=== PATIENT | female | born 1960 | race Hispanic/Latino ===

== ENCOUNTER 2019-07-18 22:46 | Inpatient (IN) | payer OTHER ==
--- NOTE | 2019-07-18 23:33 | RAD ---
Exam: XR Hip Lt 2-3 View HISTORY: Left hip pain after a fall. COMPARISON: None FINDINGS: There is a subcapital left femoral neck fracture with varus angulation of fracture fragments. Distal fracture fragment is also mildly displaced superiorly. No definite additional fracture is seen. Multiple phleboliths overlie the pelvis. IMPRESSION: Left subcapital femoral neck fracture with varus angulation and mild displacement of fracture fragmen ts.
[2019-07-18] MEDS ORDERED: Ondansetron PF 4 MG/2 ML Vial ONE (23:53)
[2019-07-18] MEDS ORDERED: Morphine 4 MG/ML VIAL ONE (23:53)
[2019-07-19 00:22] LABS: #Basophils 0.1 thou/uL (0.0-0.2); #Monocytes 0.3 thou/uL (0.11-0.59); #Neutrophils 7.7 thou/uL (1.40-6.50); %Basophils 0.9 % (0.0-1.0); %Eosinophils 0.1 % (0.0-10.0); %Lymphocytes 20.1 % (21.0-51.0); %Neutrophils 75.9 % (42.0-75.0); Hemoglobin 11.5 g/dL (12.0-16.0); Mean Corpuscular HGB CONC 33.8 g/dL (32.0-36.0); Mean Corpuscular Hemoglobin 33.7 pg (27.0-31.0); Mean Corpuscular Volume 99.6 fL (78.0-98.0); Mean Platelet Volume 6.5 fL (7.4-10.4); Platelet Count 249 thou/uL (130-400); RBC Distribution Width 12.7 % (11.5-14.5); White Blood Cell (WBC) Count 10.1 thou/uL (4.8-10.8)
[2019-07-19 00:31] LABS: INR-International Normal Ratio 1.2; PTT 32.8 SEC (22.9-36.1); Prothrombin Time 14.7 SEC (12.0-14.7)
[2019-07-19 00:45] LABS: ALT (SGPT) 18 U/L (8-55); AST (SGOT) 40 U/L (5-34); Albumin 3.5 g/dL (3.5-5.0); Alkaline Phosphatase 122 U/L (40-110); Anion Gap 13 mmol/L (10-20); BUN (Urea Nitrogen) 4 mg/dL (9.8-20.1); Bilirubin, Total 0.3 mg/dL (0.2-1.2); Calc. Creatinine Clearance 0 mL/min (70-130); Calcium 8.2 mg/dL (7.8-10.44); Carbon Dioxide 22 mmol/L (22-29); Chloride 91 mmol/L (98-107); Estimated GFR-MDRD Greater than 90; Globulin 2.9 g/dL (2.4-3.5); Glucose 145 mg/dL (70-105); Potassium 4.1 mmol/L (3.5-5.1); Protein, Total 6.4 g/dL (6.0-8.3); Sodium 122 mmol/L (136-145)
[2019-07-19] MEDS ORDERED: Dextrose 5% in Water 1,000 ML IV PRN (01:16)
[2019-07-19] MEDS ORDERED: Ondansetron PF 4 MG/2 ML Vial IVP PRN (01:16)
[2019-07-19] MEDS ORDERED: hydrALAZINE 20 MG/ML VIAL SLOW IVP PRN (01:16)
[2019-07-19] MEDS ORDERED: Dextrose 50% Abboject 50 ML SYRINGE SLOW IVP PRN (01:16)
[2019-07-19] MEDS ORDERED: traMADol HCl 50 MG TAB PO PRN ×2 (01:22→16:47)
[2019-07-19] MEDS ORDERED: Acetaminophen 325 MG TAB PO PRN (01:22)
[2019-07-19] MEDS ORDERED: Sodium Chloride 0.9% 1,000 ML IV SCH (01:30)
[2019-07-19] MEDS ORDERED: Ketorolac Tromethamine 30 MG/ML VIAL IVP SCH (02:00)
--- NOTE | 2019-07-19 02:24 | HP ---
HISTORY OF PRESENT ILLNESS: Ms. Kelly is a 59-year-old female who presents to the ED after a mechanical fall at home. The patient reports she was walking in the garage, tripped from some object on the floor, fell on her left hip. She did not report loss of consciousness or hit her head at the time. After the fall, the patient was complaining of pain from the left hip and unable to bear weight. Upon arrival in the ED the patient alert and awake. GCS 15. Vital signs stable. Complaint of left hip pain. No other pain is associated. REVIEW OF SYSTEMS: Noncontributory except per HPI. PAST MEDICAL HISTORY: COPD, alcoholic pancreatitis. PAST SURGICAL HISTORY: Cataract surgery. SOCIAL HISTORY: The patient drinks every day 6 to 7 pack a day, smoke every day half a pack a day. The patient lives at home. Denies drug use. CURRENT MEDICATION: Include ibuprofen and albuterol inhaler two times a day. PHYSICAL EXAMINATION: GENERAL: The patient lying down in bed comfortable with no acute respiratory distress. The patient is alert and awake. GCS 15. SKIN: [place]. Membranes is moist. HEENT: Atraumatic. No bruising. Pupils equal bilaterally. Reactive to light. NECK: Trachea midline. Nontender to palpation. CHEST: Atraumatic. No crepitus. No bruising. No tender to palpation. LUNGS: Clear bilaterally. HEART: Regular rate and rhythm. ABDOMEN: Soft, nondistended. Bowel sounds active. EXTREMITIES: Neurovascularly intact x4. Left hip pain and limited range of motion due to pain. NEUROLOGY: No focal neurology deficits. Initial workup show left hip fracture. ASSESSMENT: 1. Status post mechanical ground level fall. 2. Left hip fracture. 3. History of chronic obstructive pulmonary disease. 4. Alcohol abuse. PLAN: The patient will be admitted to [place] [id number] for pain control. The patient will be n.p.o. at midnight. Initiate non-pharmacology DVT prophylaxis. Initiate gastritis prophylaxis. Dr. Rankin will take the patient to the OR tomorrow for left hip fracture fixation. Postop the patient will need to work with PT, OT. Anticipate placement in rehabilitation facility. Job ID: [id number]
[2019-07-19] MEDS: Sodium Chloride 0.9% 1,000 ML IV SCH ×3 (03:30→17:16)
--- NOTE | 2019-07-19 03:35 | CON ---
DATE OF CONSULTATION: 07/19/2019 CHIEF COMPLAINT: Left hip pain. HISTORY OF PRESENT ILLNESS: Ms. Kelly is a 59-year-old female, status post fall, tripping over her feet while at home. She is mainly complaining of left hip pain with motion. Pain is 4/10. Denies numbness or tingling. PAST MEDICAL HISTORY: Includes COPD, alcoholic pancreatitis, history of a collapsed lung x2. No history of congestive heart failure per report. Mixed depressive bipolar. PAST SURGICAL HISTORY: Includes; 1. Lung surgery for collapsed lung. 2. Cataract procedures. ALLERGIES: NO KNOWN DRUG ALLERGIES. MEDICATIONS: Ibuprofen and multivitamins. SOCIAL HISTORY: Drinks 6 packs per day, 7 per day, smoked for 30 years. The patient lives at home with 2 elder people. She is currently not working. She states that she walks around the house, around the neighborhood actively. PHYSICAL EXAMINATION: VITAL SIGNS: Blood pressure 120/57, heart rate 63, respiratory rate 20, temperature 97.8, sats 100% on room air. GENERAL: Alert and oriented female, in no acute distress, resting comfortably in bed. EXTREMITIES: Left lower extremity is short and externally rotated. Brisk cap refill. 2+ palpable pulse. Pain with internal and external rotation. No effusion in the knee. Patient has motor intact distally. IMAGING DATA: Radiographs of left hip show a subcapital femoral neck fracture. LABORATORY DATA: H and H 11 and 35. IMPRESSION: 1. Left subcapital femoral neck fracture. 2. Smoker. 3. History of alcoholism. 4. Chronic obstructive pulmonary disease. ASSESSMENT AND PLAN: The patient admitted per Trauma and discussed with the patient that she would require total hip arthroplasty for definitive care of her left hip. I discussed the reasons why given she is 59 and active, discussed she is at increased risk, she has had recurrent falls periprosthetic fracture dislocation. Discussed risk of her limb, discussed risk of DVT, damage to vital structures, nerves, arteries, tendons, need for further surgery, short and external rotation, loss of life or limb. Discussed mortality associated with the fracture. The patient and family understand the risks and benefits of procedure, using preoperative antibiotics, will be taken to the OR tomorrow. Job ID: [id number]
[2019-07-19] MEDS: Ketorolac Tromethamine 30 MG/ML VIAL IVP SCH ×2 (05:23→12:33)
[2019-07-19 05:47] VITALS: BMI 16.6
[2019-07-19] MEDS ORDERED: FLU VACC QS2019-20(6MOS UP)/PF 60 MCG/0.5 ML SYRINGE IM ONE (09:00)
--- NOTE | 2019-07-19 09:02 | RAD ---
LEFT TIBIA AND FIBULA 2 VIEWS: Date: 07/19/19 HISTORY: Tibia/fibula pain after fall. FINDINGS: The bones appear demineralized. There are no signs of fracture or dislocation. IMPRESSION: Negative left tibia and fibula. POS: OFF
--- NOTE | 2019-07-19 09:53 | RAD ---
AP PELVIS: Date: 07/19/19 HISTORY: Fall with hip pain. FINDINGS: Bones are demineralized. There is a left femoral neck fracture present. Associated coxa vara deformit y. IMPRESSION: Left femoral neck fracture. POS: OFF
[2019-07-19] MEDS: Famotidine/PF 20 mg/2ml Vial SLOW IVP SCH ×2 (09:55→21:36)
[2019-07-19] MEDS: Thiamine 100 MG TAB PO SCH (09:57)
[2019-07-19] MEDS: Folic Acid 1 MG TAB PO SCH (09:57)
[2019-07-19] MEDS: Gabapentin 100 MG CAP PO SCH ×3 (09:57→21:38)
[2019-07-19] MEDS: Polyethylene Glycol 3350 17 GM Packet PO SCH (09:57)
[2019-07-19] MEDS: Senokot S 8.6-50 MG TAB PO SCH ×2 (09:57→21:38)
[2019-07-19] MEDS: Oxazepam 10 MG CAP PO SCH ×2 (09:57→21:39)
--- NOTE | 2019-07-19 10:06 | RAD ---
LEFT FEMUR 2 VIEWS: Date: 07/19/19 HISTORY: Fall with pain. FINDINGS: There is a left femoral neck fracture noted. There is a coxa vara type deformity present. Bones appea r demineralized. IMPRESSION: Left femoral neck fracture. POS: OFF
--- NOTE | 2019-07-19 11:03 | HP ---
CHIEF COMPLAINT: Left hip pain after fall. HISTORY OF PRESENT ILLNESS: The patient is a 59-year-old female, who was at a [employer], evidently fell off a step, landed on her left hip and complained of severe pain. No loss of consciousness. No other injury. PAST MEDICAL HISTORY: Significant for COPD. She has history of alcoholism, pancreatitis. She has had 2 pneumothoraxes. PAST SURGICAL HISTORY: She has had chest tube placement. MEDICATIONS: She takes; 1. Albuterol inhaler. 2. Ibuprofen. ALLERGIES: SHE HAS NO KNOWN DRUG ALLERGIES. PHYSICAL EXAMINATION: VITAL SIGNS: Temperature 98.2, pulse 77, and blood pressure is 102/51. GENERAL: She is awake, alert, in no apparent distress. HEENT: Unremarkable. LUNGS: Clear. HEART: Regular rate and rhythm. ABDOMEN: Soft, nondistended, and nontender. EXTREMITIES: She has tenderness in the left hip. DIAGNOSTIC DATA: Hip x-ray shows a left subcapsular femoral neck fracture with mild displacement. Pelvis, unremarkable. Tibia-fibula, unremarkable. ASSESSMENT: Left hip fracture. PLAN: Left hip replacement per Orthopedics. Job ID: [id number]
[2019-07-19] MEDS ORDERED: Ketorolac Tromethamine 30 MG/ML VIAL ONE (11:20)
[2019-07-19] MEDS ORDERED: Vancomycin HCl 500 MG VIAL ONE (11:50)
[2019-07-19] MEDS ORDERED: Ondansetron HCl/PF 4 MG/2 ML Vial IVP PRN (11:58)
[2019-07-19] MEDS ORDERED: Fentanyl 100 MCG/2 ML VIAL ONE ×4 (12:04→15:21)
[2019-07-19] MEDS ORDERED: Rocuronium Bromide 10 MG/ML (10ML VIAL) ONE (14:56)
[2019-07-19] MEDS ORDERED: PROPOFOL 200 MG/20 ML VIAL ONE (14:56)
[2019-07-19] MEDS ORDERED: Ondansetron PF 4 MG/2 ML Vial ONE (14:56)
[2019-07-19] MEDS ORDERED: Dexamethasone 20 MG/5 ML VIAL ONE (14:56)
[2019-07-19] MEDS ORDERED: Glycopyrrolate 0.2 MG/ML 5 ML SYRINGE ONE (14:56)
[2019-07-19] MEDS ORDERED: Lidocaine 1% PF 5 ML VIAL ONE (14:56)
--- NOTE | 2019-07-19 15:16 | RAD ---
LEFT HIP TWO VIEWS: HISTORY: Postop. FINDINGS: A total hip prosthesis has been placed, which is in good position. No signs of fracture. IMPRESSION: Placement of total left hip prosthesis. POS: OFF
[2019-07-19 16:18] LABS: #Lymphocytes 0.5 thou/uL (1.20-3.40); #Monocytes 0.1 thou/uL (0.11-0.59); #Neutrophils 12.9 thou/uL (1.40-6.50); %Basophils 0.2 % (0.0-1.0); %Lymphocytes 3.9 % (21.0-51.0); %Monocytes 0.7 % (0.0-10.0); %Neutrophils 95.2 % (42.0-75.0); Hemoglobin 9.7 g/dL (12.0-16.0); Mean Corpuscular Hemoglobin 34.3 pg (27.0-31.0); Mean Platelet Volume 6.4 fL (7.4-10.4); Platelet Count 203 thou/uL (130-400); RBC Distribution Width 12.7 % (11.5-14.5); Red Blood Cell (RBC) Count 2.82 mill/uL (4.20-5.40); White Blood Cell (WBC) Count 13.5 thou/uL (4.8-10.8)
[2019-07-19 16:39] LABS: Anion Gap 12 mmol/L (10-20); BUN (Urea Nitrogen) 4 mg/dL (9.8-20.1); Carbon Dioxide 24 mmol/L (22-29); Chloride 96 mmol/L (98-107); Potassium 4.2 mmol/L (3.5-5.1); Sodium 128 mmol/L (136-145)
[2019-07-19 16:40] LABS: Calc. Creatinine Clearance 68 mL/min (70-130); Calcium 7.9 mg/dL (7.8-10.44); Estimated GFR-MDRD Greater than 90; Glucose 177 mg/dL (70-105); Magnesium 1.8 mg/dL (1.6-2.6); Phosphorus 3.6 mg/dL (2.3-4.7)
[2019-07-19] MEDS: Acetaminophen 500 MG TAB PO SCH ×2 (17:14→23:55)
[2019-07-19] MEDS: ceFAZolin 1 GM/D5W 1 GM in Premix Bag 1 BAG IVPB SCH (21:00)
[2019-07-19] MEDS: Ibuprofen 600 MG TAB PO SCH (21:38)
[2019-07-19] MEDS ORDERED: Vancomycin HCl 1 GM in Premix Bag 1 BAG IVPB SCH (23:59)
[2019-07-20] MEDS ORDERED: Sodium Chloride 0.9% 500 ML IV SCH (01:30)
[2019-07-20] MEDS ORDERED: Hydrocortisone Sod Succ/PF 100 mg/2 ml Vial IVP SCH (01:45)
[2019-07-20] MEDS: ceFAZolin 1 GM/D5W 1 GM in Premix Bag 1 BAG IVPB SCH ×2 (04:00→12:49)
[2019-07-20 06:13] LABS: Hemoglobin 7.2 g/dL (12.0-16.0); Mean Corpuscular HGB CONC 33.5 g/dL (32.0-36.0); Mean Corpuscular Hemoglobin 34.2 pg (27.0-31.0); Platelet Count 144 thou/uL (130-400); RBC Distribution Width 12.5 % (11.5-14.5); Red Blood Cell (RBC) Count 2.11 mill/uL (4.20-5.40); White Blood Cell (WBC) Count 5.9 thou/uL (4.8-10.8)
[2019-07-20 06:32] LABS: Anion Gap 11 mmol/L (10-20); BUN (Urea Nitrogen) 4 mg/dL (9.8-20.1); Calc. Creatinine Clearance 67 mL/min (70-130); Calcium 7.3 mg/dL (7.8-10.44); Carbon Dioxide 21 mmol/L (22-29); Chloride 102 mmol/L (98-107); Estimated GFR-MDRD Greater than 90; Glucose 157 mg/dL (70-105); Magnesium 1.7 mg/dL (1.6-2.6); Phosphorus 2.9 mg/dL (2.3-4.7); Potassium 4.2 mmol/L (3.5-5.1); Sodium 130 mmol/L (136-145)
[2019-07-20] MEDS: Hydrocortisone Sod Succ/PF 100 mg/2 ml Vial IVP SCH ×3 (06:38→20:59)
[2019-07-20] MEDS: Acetaminophen 500 MG TAB PO SCH ×3 (06:38→17:39)
[2019-07-20] MEDS: Ibuprofen 600 MG TAB PO SCH ×3 (06:39→21:00)
[2019-07-20] MEDS: Gabapentin 100 MG CAP PO SCH ×3 (08:29→20:40)
[2019-07-20] MEDS: Famotidine/PF 20 mg/2ml Vial SLOW IVP SCH ×2 (08:29→20:40)
[2019-07-20] MEDS: Oxazepam 10 MG CAP PO SCH ×2 (08:29→20:40)
[2019-07-20] MEDS: Polyethylene Glycol 3350 17 GM Packet PO SCH (08:30)
[2019-07-20] MEDS: Thiamine 100 MG TAB PO SCH (08:30)
[2019-07-20] MEDS: Folic Acid 1 MG TAB PO SCH (08:30)
[2019-07-20] MEDS: Senokot S 8.6-50 MG TAB PO SCH ×2 (08:30→20:40)
--- NOTE | 2019-07-20 10:55 | CON ---
DATE OF CONSULTATION: HISTORY OF PRESENT ILLNESS: Ms. Kelly is a 59-year-old female, status post left total hip arthroplasty after a fall with femoral neck fracture. The patient is resting comfortably in bed without any acute complaints. PHYSICAL EXAMINATION: VITAL SIGNS: Temperature 98.2, pulse 80, respiratory rate 20, and blood pressure 130/68. GENERAL: Alert and oriented female, in no acute distress. EXTREMITIES: Left lower extremity dressing clean, dry, and intact. Neurovascularly intact. Length and rotation are stable. LABORATORY DATA: H and H of 7 and 21. IMPRESSION: 1. Left femoral neck fracture. 2. Anemia. 3. History of alcoholism. 4. Chronic obstructive pulmonary disease/smoker. ASSESSMENT AND PLAN: The patient will be ambulated. She is currently receiving blood transfusion. Will potentially need [facility] transfer to follow in-house. Start deep venous thrombosis prophylaxis when her H and H stabilizes. Job ID: [id number]
[2019-07-20] MEDS: traMADol HCl 50 MG TAB PO PRN ×2 (11:25→17:39)
--- NOTE | 2019-07-20 12:26 | OP ---
DATE OF PROCEDURE: 07/19/2019 PREOPERATIVE DIAGNOSIS: Left femoral neck fracture. POSTOPERATIVE DIAGNOSIS: Left femoral neck fracture. PROCEDURE PERFORMED: Left total hip arthroplasty. SCHOOL PHOTOGRAPH EDITOR: Marcie Dawson PA-C. ANESTHESIA: The patient received a general endotracheal intubation. ESTIMATED BLOOD LOSS: 150 mL. TOURNIQUET TIME: None. IMPLANTS: [place] Trident PSL CONDON shell 46 mm and Trident X3 0-degree poly at 36 mm, Accolade II 130-degree size 5, and a Biolox ceramic Delta -5 femoral head. ANTIBIOTICS: 2 g of vancomycin 2g of ancef COMPLICATIONS: None. HISTORY OF PRESENT ILLNESS: Ms. Kelly is a 59-year-old female with history of alcoholism, smoking, and COPD, The patient fell from ground fall suffering a left femoral neck fracture. I discussed with the patient risks and benefits of left total hip arthroplasty including pain, scar, bleeding, infection, fracture, dislocatoin, need for further surgery, failure of implants needing surgical intervention, damage to vital structures, decreased range or strength, loss of life or limb, blood clot, shortening external rotation of the limb. The patient understood risks and benefits of procedure and elected to proceed. DESCRIPTION OF PROCEDURE: Time-out was performed, designating the patient's left lower extremity as the operative site based on site, consents, and marking. After time-out, the patient's left lower extremity was placed in the lateral position bony prominences were well padded. After the time-out had been performed, the patient's lateral incision was made down through skin and IT band. The gluteus medius and minimus were taken down. The capsule was T'd up to the acetabulum. We were able the bring out the head, cut our neck, remainder of neck and remove it. We then placed a corkscrew and we were able to lever out the ball. We removed the acetabular labrum to expose the hip. We measured the size of the head about a 44 we reamed up to a 46. I felt like if I went larger and very minimal bone stock available. Therefore, I stayed with a 46, reamed and placed 46-mm PSL cup, placed the X3 poly impacting into place to make sure it was nice and stable no movement, overall I was happy. We then moved back to the patient's femur. We used a [employer] cutter followed up to a broach_. The patient's calcar was long, therefore we had on 2 separate occasions broached down in calcar plane to help with our lengths as well as just ensure that we were able to reduce the hip. We finally ended up with the size 5. The 36 [address] head reduced in place. We had overall good stability I like the flexion-extension Shuck as well as the patient's length. We removed the stem, placed a final implant with a -5 ceramic head, reduced into place, washed the joint. We took the capsule, which we closed with #2 Vicryl. We closed the gluteus back to both the fascial plane as well as what was left what was cut off the bone. We then closed the gluteus medius and minimus and portions of the vastus as well as near its insertion and two separate sutures through bone. I washed, closed the IT band with number 2 vicryl and statafix. We closed skin with 0, 2-0 stratafix and glue. The patient will be admitted to Trauma. She will be weightbearing as tolerated. The patient is followed in-house. The patient will need likely long-term placement . Job ID: [id number] [facility]PITALLiss[facility]
[2019-07-20] MEDS: Cyclobenzaprine 10 MG TAB PO PRN (12:49)
[2019-07-20] MEDS ORDERED: Magnesium Sulfate 3 GM in Sodium Chloride 0.9% 250 ML 250 ML IVPB SCH (13:00)
--- NOTE | 2019-07-20 13:05 | PRG ---
DATE OF SERVICE: 07/20/2019 SUBJECTIVE: The patient is hospital day 2, postop day 1, status post ground level fall when she sustained a left femoral neck fracture. She has undergone operative intervention for this and she did well. This morning, it was noted that she had acute blood loss anemia and she is currently being transfused 1 unit of packed red blood cells. She is tolerating a diet. Her pain is controlled. OBJECTIVE: VITAL SIGNS: Temperature 98.1, heart rate 60, respirations 18, oxygen saturation 98% on room air, and blood pressure is 131/77. GENERAL: The patient is resting comfortably in bed. She has just completed breakfast. She has no complaints. She is awake and appropriate. HEENT: Unremarkable. LUNGS: Clear to auscultation with good inspiratory and expiratory effort. HEART: Regular rate and rhythm. ABDOMEN: Soft, flat, and nontender with active bowel sounds. EXTREMITIES: Neurovascularly intact x4. Postop dressing is clean, dry, and intact. LABORATORY FINDINGS: White blood cell count 5.9, hemoglobin 7.2, hematocrit 21.5, and platelets 144. Sodium 130, potassium 4.2, chloride 102, CO2 of 21, BUN 4, creatinine 0.66, glucose 157, magnesium 1.7, and phosphorus 2.9. Cortisols less than 1. No radiographs reviewed this morning. ASSESSMENT: 1. Status post ground level fall. 2. Status post open reduction and internal fixation of left femoral neck fracture, postop day 1. 3. Acute blood loss anemia, being transfused 1 unit of packed red blood cells. 4. Hypomagnesemia. The patient will have electrolyte replaced. 5. History of alcoholism. 6. History of chronic obstructive pulmonary disease. 7. Hyponatremia, improved. PLAN: Plan will be to encourage physical and occupational therapy. Once blood transfusion is completed, we will discuss placement, which will likely be rehab. We will recheck her labs again in the morning or sooner as needed. Job ID: [id number] [facility]
--- NOTE | 2019-07-20 21:58 | PRG ---
DATE OF SERVICE: SUBJECTIVE: Ms. Kelly is a 59-year-old female, status post ground level fall. She sustained left hip fracture. She underwent ORIF of left hip fracture, postop day #1 today. She has a history of COPD, alcoholism, and acute blood loss anemia. She is being transfused with 1 unit of packed red blood cells today. Currently, patient reports pain is well controlled. She is tolerating with her regular diet. She developed no fever or shortness of breath. She voiced no concern. OBJECTIVE: GENERAL: Currently, patient is lying down in bed comfortable with no acute respiratory distress. VITAL SIGNS: Stable. LUNGS: Clear bilaterally. HEART: Regular rate and rhythm. Postop dressing of the left hip is clean, dry, and intact. EXTREMITIES: Neurovascularly intact x4. PLAN: Will be to continue supportive care. Continue pain control. Continue working with PT/OT tomorrow. Anticipate placement in a rehabilitation facility. Job ID: [id number]
[2019-07-21] MEDS: Acetaminophen 500 MG TAB PO SCH ×4 (00:23→17:45)
[2019-07-21] MEDS: Hydrocortisone Sod Succ/PF 100 mg/2 ml Vial IVP SCH ×3 (05:32→21:55)
[2019-07-21] MEDS: Ibuprofen 600 MG TAB PO SCH ×3 (05:33→22:02)
[2019-07-21 06:11] LABS: #Lymphocytes 2.7 thou/uL (1.20-3.40); #Monocytes 0.5 thou/uL (0.11-0.59); #Neutrophils 6.9 thou/uL (1.40-6.50); %Basophils 0.1 % (0.0-1.0); %Eosinophils 0.1 % (0.0-10.0); %Lymphocytes 26.3 % (21.0-51.0); %Monocytes 4.8 % (0.0-10.0); %Neutrophils 68.6 % (42.0-75.0); Mean Corpuscular HGB CONC 33.8 g/dL (32.0-36.0); Mean Corpuscular Hemoglobin 33.6 pg (27.0-31.0); Mean Corpuscular Volume 99.2 fL (78.0-98.0); Mean Platelet Volume 7.4 fL (7.4-10.4); Platelet Count 132 thou/uL (130-400); RBC Distribution Width 13.9 % (11.5-14.5); Red Blood Cell (RBC) Count 2.67 mill/uL (4.20-5.40); White Blood Cell (WBC) Count 10.1 thou/uL (4.8-10.8)
[2019-07-21 06:32] LABS: Anion Gap 9 mmol/L (10-20); BUN (Urea Nitrogen) 5 mg/dL (9.8-20.1); Calc. Creatinine Clearance 74 mL/min (70-130); Calcium 7.7 mg/dL (7.8-10.44); Carbon Dioxide 25 mmol/L (22-29); Chloride 100 mmol/L (98-107); Estimated GFR-MDRD Greater than 90; Glucose 138 mg/dL (70-105); Magnesium 2.3 mg/dL (1.6-2.6); Phosphorus 2.7 mg/dL (2.3-4.7); Potassium 4.6 mmol/L (3.5-5.1); Sodium 129 mmol/L (136-145)
[2019-07-21] MEDS: Aspirin 81 mg Enteric Coated Tablet PO SCH ×2 (09:40→21:36)
[2019-07-21] MEDS: Sodium Chloride 1 GM TAB PO SCH ×2 (09:40→21:38)
[2019-07-21] MEDS: Folic Acid 1 MG TAB PO SCH (09:40)
[2019-07-21] MEDS: Thiamine 100 MG TAB PO SCH (09:40)
[2019-07-21] MEDS: Gabapentin 100 MG CAP PO SCH ×3 (09:40→21:37)
[2019-07-21] MEDS: Famotidine/PF 20 mg/2ml Vial SLOW IVP SCH ×2 (09:40→21:38)
[2019-07-21] MEDS: Oxazepam 10 MG CAP PO SCH ×2 (09:42→21:37)
[2019-07-21] MEDS: Polyethylene Glycol 3350 17 GM Packet PO SCH (09:42)
[2019-07-21] MEDS: Senokot S 8.6-50 MG TAB PO SCH ×2 (09:42→21:37)
--- NOTE | 2019-07-21 11:41 | PRG ---
DATE OF SERVICE: 07/21/2019 SUBJECTIVE: Ms. Kelly is a 59-year-old female, status post left total hip arthroplasty. The patient is resting comfortably in bed. She states she ambulated 25 feet yesterday and has had a big bowel movement. Pain and function are improving. OBJECTIVE: VITAL SIGNS: Temperature 98.1, pulse 72, respiratory rate 18, MUSCULOSKELETAL: Neurovascularly intact. wound clean, dry, and intact wound. LABORATORY DATA: H and H of 9 and 26.5. ASSESSMENT AND PLAN: The patient will be weightbearing as tolerated. Likely potentially need skilled placement will follow along with trauma. Job ID: [id number] [facility]
[2019-07-21] MEDS: Cyclobenzaprine 10 MG TAB PO PRN (14:17)
--- NOTE | 2019-07-21 14:55 | PRG ---
DATE OF SERVICE: 07/21/2019 SUBJECTIVE: The patient remains on the surgical floor. She is hospital day #3, postop day #2, status post ground level fall when she sustained a left femoral neck fracture. She has been working with physical and occupational therapy. She is tolerating a diet. Her pain is controlled. Yesterday, she did require 1 unit of packed red blood cells that she states did make her feel better. The patient also was noted to have adrenal insufficiency and was started on hydrocortisone. OBJECTIVE: VITAL SIGNS: Temperature is 97.9, heart rate 67, blood pressure 145/73, respirations 14, and oxygen saturation is 97% on room air. HEENT: Unremarkable. LUNGS: Clear to auscultation bilaterally. HEART: Regular rate and rhythm. ABDOMEN: Soft, flat, and nontender with active bowel sounds. EXTREMITIES: Neurovascularly intact x4. Postop dressing is clean, dry, and intact. LABORATORY FINDINGS: White blood cell count 10.1, hemoglobin 9.0, hematocrit 26.5, platelets 132. Sodium 129, potassium 4.6, chloride 100, CO2 of 25, BUN 5, creatinine 0.60, glucose 138, magnesium 2.3, and phosphorus 2.7. IMAGING STUDIES: There are no radiographs to review this morning. ASSESSMENT: 1. Status post ground level fall. 2. Status post open reduction and internal fixation of left femoral neck fracture, postop day #2. 3. Acute blood loss anemia, improved, stable. 4. Hypomagnesemia, resolved. 5. Adrenal insufficiency, improved. We will wean hydrocortisone. 6. Hyponatremia, stable. We will add p.o. sodium today. 7. History of alcoholism and chronic obstructive pulmonary disease. PLAN: Plan will be to continue physical and occupational therapy and other care as addressed above and we will await placement decision. Job ID: [id number]
[2019-07-21] MEDS: Nicotine 14 MG PATCH TD SCH (21:39)
[2019-07-21] MEDS: Acetaminophen 325 MG TAB PO SCH (23:34)
[2019-07-21] MEDS: traMADol HCl 50 MG TAB PO PRN (23:35)
[2019-07-22] MEDS: Ibuprofen 600 MG TAB PO SCH ×3 (05:31→21:16)
[2019-07-22] MEDS: Acetaminophen 325 MG TAB PO SCH ×3 (05:31→18:08)
[2019-07-22] MEDS: Hydrocortisone Sod Succ/PF 100 mg/2 ml Vial IVP SCH (05:32)
--- NOTE | 2019-07-22 05:33 | PRG ---
DATE OF SERVICE: 07/21/2019 SUBJECTIVE: Ms. Kelly is a 59-year-old female, status post ground level fall. She sustained left hip fracture. She underwent ORIF of left hip fracture, postop day #2. She also has a history of COPD, alcoholism, and history of smoking. Patient reports she has been doing good. Pain is well controlled. She is able to work with PT/OT. She tolerated her regular diet. She voiced no concern. OBJECTIVE: GENERAL: Currently, patient is lying in bed comfortable with no acute respiratory distress. VITAL SIGNS: Stable. EXTREMITIES: Neurovascularly intact x4. Postop dressing clean, dry, intact. ASSESSMENT AND PLAN: We will continue supportive care. Continue pain control. Continue working with PT/OT. Placement is pending. Job ID: [id number]
[2019-07-22] MEDS: Aspirin 81 mg Enteric Coated Tablet PO SCH ×2 (08:56→21:16)
[2019-07-22] MEDS: Senokot S 8.6-50 MG TAB PO SCH ×2 (08:56→21:16)
[2019-07-22] MEDS: Oxazepam 10 MG CAP PO SCH ×2 (08:56→21:16)
[2019-07-22] MEDS: Thiamine 100 MG TAB PO SCH (08:56)
[2019-07-22] MEDS: Famotidine/PF 20 mg/2ml Vial SLOW IVP SCH (08:56)
[2019-07-22] MEDS: Folic Acid 1 MG TAB PO SCH (08:56)
[2019-07-22] MEDS: Gabapentin 100 MG CAP PO SCH ×3 (08:56→21:16)
[2019-07-22] MEDS: Polyethylene Glycol 3350 17 GM Packet PO SCH (08:57)
--- NOTE | 2019-07-22 11:32 | PRG ---
DATE OF SERVICE: SUBJECTIVE: The patient remains on the surgical floor. She is hospital day 4, postop day 3 status post ground-level fall, in which she sustained a left femoral neck fracture. She has undergone operative repair. She has been working with Physical and Occupational Therapy. She is tolerating a diet. Her pain is controlled and her bowel function has returned. The patient is progressing very well with therapy. She is currently awaiting placement decisions. PHYSICAL EXAMINATION: VITAL SIGNS: Temperature 97.7, heart rate 65, blood pressure 160/80, respirations 16, and oxygen saturation 98% on room air. GENERAL: The patient is resting comfortably in bed. She is awake, alert, and oriented. HEENT: Unremarkable. LUNGS: Clear to auscultation bilaterally. HEART: Regular rate and rhythm. ABDOMEN: Soft, flat, nontender with active bowel sounds. EXTREMITIES: Neurovascularly intact x4. There are no labs or radiographs to review this morning. ASSESSMENT: 1. Status post ground-level fall. 2. Status post open reduction and internal fixation of left femoral neck fracture, postop day 3. 3. Acute blood loss anemia, improved, stable. 4. Hypomagnesemia, resolved. 5. Adrenal insufficiency, improved. We will discontinue hydrocortisone today. 6. Hyponatremia, stable. We will repeat labs in the morning. 7. History of alcoholism and chronic obstructive pulmonary disease. PLAN: Plan will be to continue physical and occupational therapy, await placement decision, recheck labs in the morning, and continue other supportive care. Job ID: [id number]
[2019-07-22] MEDS: Sodium Chloride 1 GM TAB PO SCH ×2 (14:33→21:24)
[2019-07-22] MEDS ORDERED: traMADol HCl 50 MG TAB PO SCH (21:15)
[2019-07-22] MEDS: Nicotine 14 MG PATCH TD SCH (21:16)
[2019-07-23] MEDS: traMADol HCl 50 MG TAB PO SCH ×5 (00:13→23:48)
[2019-07-23] MEDS: Acetaminophen 325 MG TAB PO SCH ×5 (00:14→23:48)
--- NOTE | 2019-07-23 01:33 | PRG ---
DATE OF SERVICE: 07/22/2019 SUBJECTIVE: Ms. Kelly is a 59-year-old female status post ground level fall, sustained left hip fracture. She underwent ORIF of left hip fracture on postop day #3. The patient reports she has been doing good; however, her pain is with PT/OT and she did not ask for tramadol at that time. She tolerated with her regular diet. Other than that, she voiced no concern. OBJECTIVE: GENERAL: Currently, the patient is lying on bed comfortable with no acute respiratory distress. VITAL SIGNS: Stable. EXTREMITIES: Neurovascularly intact x4. Postop dressing clean, dry, intact. ASSESSMENT AND PLAN: Continue supportive care. Continue pain control. We will schedule tramadol 50 mg q.6 hours. Initiate gabapentin 200 b.i.d. Add Ensure for nutrition supplement. The patient anticipates placement in rehabilitation facility. Job ID: [id number]
[2019-07-23] MEDS: Famotidine/PF 20 mg/2ml Vial SLOW IVP SCH (04:47)
[2019-07-23] MEDS: Ibuprofen 600 MG TAB PO SCH ×3 (05:14→21:44)
[2019-07-23 06:00] LABS: #Eosinphils 0.2 thou/uL (0.0-0.7); #Lymphocytes 4.1 thou/uL (1.20-3.40); #Monocytes 0.4 thou/uL (0.11-0.59); #Neutrophils 5.1 thou/uL (1.40-6.50); %Basophils 0.4 % (0.0-1.0); %Eosinophils 1.8 % (0.0-10.0); %Monocytes 3.6 % (0.0-10.0); %Neutrophils 52.1 % (42.0-75.0); Hemoglobin 8.5 g/dL (12.0-16.0); Mean Corpuscular HGB CONC 32.8 g/dL (32.0-36.0); Mean Corpuscular Hemoglobin 33.1 pg (27.0-31.0); Mean Platelet Volume 7.2 fL (7.4-10.4); Platelet Count 157 thou/uL (130-400); RBC Distribution Width 13.8 % (11.5-14.5); Red Blood Cell (RBC) Count 2.58 mill/uL (4.20-5.40); White Blood Cell (WBC) Count 9.8 thou/uL (4.8-10.8)
[2019-07-23 06:24] LABS: Anion Gap 8 mmol/L (10-20); BUN (Urea Nitrogen) 6 mg/dL (9.8-20.1); Calc. Creatinine Clearance 83 mL/min (70-130); Calcium 7.7 mg/dL (7.8-10.44); Carbon Dioxide 30 mmol/L (22-29); Chloride 101 mmol/L (98-107); Estimated GFR-MDRD Greater than 90; Glucose 79 mg/dL (70-105); Magnesium 1.7 mg/dL (1.6-2.6); Phosphorus 3.5 mg/dL (2.3-4.7); Potassium 3.9 mmol/L (3.5-5.1); Sodium 135 mmol/L (136-145)
[2019-07-23] MEDS: Polyethylene Glycol 3350 17 GM Packet PO SCH (08:01)
[2019-07-23] MEDS: Oxazepam 10 MG CAP PO SCH ×2 (08:01→21:44)
[2019-07-23] MEDS: Folic Acid 1 MG TAB PO SCH (08:01)
[2019-07-23] MEDS: Aspirin 81 mg Enteric Coated Tablet PO SCH ×2 (08:01→21:44)
[2019-07-23] MEDS: Senokot S 8.6-50 MG TAB PO SCH ×2 (08:02→21:44)
[2019-07-23] MEDS: Gabapentin 100 MG CAP PO SCH ×3 (08:02→21:44)
[2019-07-23] MEDS: Thiamine 100 MG TAB PO SCH (08:02)
[2019-07-23] MEDS ORDERED: Magnesium Oxide 250 MG TAB PO SCH (11:00)
--- NOTE | 2019-07-23 12:18 | PRG ---
DATE OF SERVICE: 07/23/2019 SUBJECTIVE: Ms. Kelly is a 59-year-old female, whom is postop day #4, hospital day 5, status post left femoral neck fracture with ORIF. Currently, I have seen her. She is walking the halls. She has no complaints, having bowel movements, normal urination, tolerating a diet and pain is more or less under control. She is waiting rehab placement. No other events overnight. PHYSICAL EXAMINATION: VITAL SIGNS: Temperature is 97.9, blood pressure 124/75, heart rate is 81, breathing 16 times per minute. She is saturating 98% on room air. GENERAL: A 59-year-old female standing, no acute distress. HEENT: Normocephalic. RESPIRATORY: Equal rise and fall. No distress. CARDIOVASCULAR: Strong pulses. MUSCULOSKELETAL: She is ambulatory. PSYCH: Normal mood and affect. SKIN: [place], warm, and dry. LABORATORY DATA: White blood cell count of 9.8, platelets are 157, hemoglobin and hematocrit are 8.5 and 26.0 respectively. Chemistry; sodium is 135, potassium 3.9, chloride is 101, CO2 is 30, creatinine is 0.53, BUN is 4, calcium 7.7, phos is 3.5, and magnesium of 1.7. ASSESSMENT: 1. Status post ground level fall. 2. ORIF of left femoral neck fracture postop day #4. 3. Acute blood loss anemia, stable. 4. Hypomagnesemia, on replacement. 5. Adrenal insufficiency, improved. 6. Hyponatremia, stable. 7. History of alcoholism and chronic obstructive pulmonary disease, stable. PLAN: 1. Continue all supportive care. Continue to replace electrolytes as needed. 2. Awaiting rehab placement and continue to work with PT. We will continue prophylaxis. I have answered all questions to the patient at the bedside. Job ID: [id number]
[2019-07-23] MEDS: Sodium Chloride 1 GM TAB PO SCH ×2 (13:05→21:44)
[2019-07-23] MEDS: Nicotine 14 MG PATCH TD SCH (21:51)
[2019-07-24] MEDS: Ibuprofen 600 MG TAB PO SCH ×2 (06:00→15:07)
[2019-07-24] MEDS: Acetaminophen 325 MG TAB PO SCH ×3 (06:00→17:44)
[2019-07-24] MEDS: traMADol HCl 50 MG TAB PO SCH ×3 (06:00→17:44)
--- NOTE | 2019-07-24 06:45 | PRG ---
DATE OF SERVICE: 07/24/2019 SUBJECTIVE: Ms. Kelly is a 59-year-old female, who was seen last evening. The patient reports she has been doing good, pains were controlled. She able to work with PT/OT. She voiced no concern. OBJECTIVE: GENERAL: Currently, the patient lying in bed no acute respiratory distress. VITAL SIGNS: Stable. EXTREMITIES: Postop dressing clean, dry, intact. PLAN: Plan will be to continue supportive care. Continue pain control. Anticipate placement in rehabilitation facility. Job ID: [id number]
[2019-07-24] MEDS: Polyethylene Glycol 3350 17 GM Packet PO SCH (08:22)
[2019-07-24] MEDS: Oxazepam 10 MG CAP PO SCH (08:22)
[2019-07-24] MEDS: Aspirin 81 mg Enteric Coated Tablet PO SCH (08:23)
[2019-07-24] MEDS: Senokot S 8.6-50 MG TAB PO SCH (08:23)
[2019-07-24] MEDS: Gabapentin 100 MG CAP PO SCH ×2 (08:23→15:07)
[2019-07-24] MEDS: Thiamine 100 MG TAB PO SCH (08:23)
[2019-07-24] MEDS: Folic Acid 1 MG TAB PO SCH (08:23)
[2019-07-24] MEDS: Sodium Chloride 1 GM TAB PO SCH (10:55)
--- NOTE | 2019-07-24 11:17 | PRG ---
DATE OF SERVICE: 07/24/2019 SUBJECTIVE: Lorena is a 59-year-old female, who is now postop day #5 from a left total hip arthroplasty for fracture care. She is doing relatively well. She is ambulating 200 to 300 feet independently and she is independent in and out of bed. The patient desires home discharge as I talked to her this morning. It is what she would prefer. OBJECTIVE: GENERAL: She is alert and oriented to person, place, time, and situation. Responsive and appropriate with examiner. VITAL SIGNS: Temperature 98, pulse 73, respiratory rate 14 and nonlabored, O2 saturations 95% on room air, and blood pressure is 120/71. EXTREMITIES: Incision is clean and closed. No erythema. No strike through. NEUROLOGIC: She is neurovascularly intact in the left lower extremity. Leg lengths appear near equal. IMPRESSION: A 59-year-old female postop day #5, left total hip arthroplasty. PLAN: We will consult Case Management for home health and home PT, probable discharge either today or tomorrow. Job ID: [id number]
--- NOTE | 2019-07-24 11:21 | PRG ---
DATE OF SERVICE: 07/24/2019 SUBJECTIVE: A 59-year-old female, who is hospital day #5, postop day #4, status post left hip ORIF, doing well, walking, in no acute distress. Pain is generally controlled. She is hemodynamically stable. She is awaiting rehab placement. I have discussed with business case analyst, they are waiting on insurance authorization. OBJECTIVE: VITAL SIGNS: Today, temperature is 98.0, blood pressure 120/71, heart rate is 73, respiratory rate is 16, breathing 95% on room air. GENERAL: A 59-year-old female, walking around the room, in no acute distress. HEENT: Normocephalic. RESPIRATORY: Equal rise and fall. No respiratory distress. CARDIOVASCULAR: Regular rate and rhythm. ABDOMEN: Soft. Pelvis is stable. MUSCULOSKELETAL: She had surgical site at left hip, but moves all her extremities well. SKIN: [place], warm, and dry. NEUROLOGIC: Alert and oriented to person, place, time, and event. PSYCH: Normal mood and affect. LABORATORY DATA: There is no laboratory data from today to review. ASSESSMENT: 1. Ground level fall. 2. Open reduction and internal fixation of the left femoral neck fracture, postop day #5. 3. Acute blood loss anemia, stable. 4. Hypomagnesium, replaced. 5. Adrenal insufficiency, improved/resolved. 6. Hyponatremia, improved. 7. History of alcoholism and chronic obstructive pulmonary disease, stable. PLAN: 1. Continue supportive care. 2. Continue working with PT. 3. Case Management has consulted, awaiting for insurance authorization for rehab placement. In the interim, we will continue aspirin, DVT prophylaxis, SCDs, and ambulation. Job ID: [id number]
[2019-07-24 15:55] VITALS: BP 123/77; TEMP 98.1
--- NOTE | 2019-07-25 02:33 | DIS ---
DATE OF ADMISSION: 07/19/2019 DATE OF DISCHARGE: 07/24/2019 ADMITTING DIAGNOSIS: Left femoral neck fracture. DISCHARGE DIAGNOSES: 1. Left femoral neck fracture, status post open reduction and internal fixation. 2. Acute blood loss anemia, stable. 3. Hyponatremia and hypomagnesemia, improved. 4. Adrenal insufficiency, improved. HOSPITAL COURSE: A 59-year-old female, who sustained a ground level fall, left femoral neck fracture. Dr. Rankin with Orthopedics was consulted and took the patient for ORIF. She was seen by OT, PT, and worked with him throughout her hospital stay. Pain was controlled. Aguirre was removed, spontaneously voiding, tolerating a diet well. The patient's insurance approved and she has been accepted to [facility]. For physical exam, please see the progress note dated today. Discharge plan is [facility]. DISCHARGE MEDICATIONS: Continue her home medications as well as tramadol, ibuprofen, and Tylenol. CONSULTANTS: Rojelio Rankin MD FOLLOWUP: Followup will be with Dr. Rankin in a few weeks at [facility] for a primary care. TIME SPENT: Greater than 30 minutes was taken in discharge planning of this patient. Job ID: [id number]
== END 2019-07-24 19:25 | DRG 470 ==
LOC: ERS 22:46 → SJJU 07-19 01:18
PROVIDERS: ADMIT Surgery; ATTEND Surgery
PROC: 0SRB04Z Replacement of Left Hip Joint with Ceramic on Polyethylene Synthetic Substitute, Open Approach (ICD-10-PCS; principal; 2019-07-19)
PROC: 30233N1 Transfusion of Nonautologous Red Blood Cells into Peripheral Vein, Percutaneous Approach (ICD-10-PCS; 2019-07-20)
DX: S72.012A Unspecified intracapsular fracture of left femur, initial encounter for closed fracture (principal); E27.40 Unspecified adrenocortical insufficiency; D62 Acute posthemorrhagic anemia; E87.1 Hypo-osmolality and hyponatremia; J44.9 Chronic obstructive pulmonary disease, unspecified; F17.210 Nicotine dependence, cigarettes, uncomplicated; F10.10 Alcohol abuse, uncomplicated; W01.0XXA Fall on same level from slipping, tripping and stumbling without subsequent striking against object, initial encounter; F31.9 Bipolar disorder, unspecified; E83.42 Hypomagnesemia; Z98.49 Cataract extraction status, unspecified eye; Z79.899 Other long term (current) drug therapy; R40.2142 Coma scale, eyes open, spontaneous, at arrival to emergency department; R40.2362 Coma scale, best motor response, obeys commands, at arrival to emergency department; R40.2252 Coma scale, best verbal response, oriented, at arrival to emergency department
CPT/HCPCS: 36415; 36430; 72170; 80048; 80053; 82533; 83735; 84100; 85025; 85027; 85610; 85730; 86850; 86900; 86901; 90471; 90686; 93005; 94640; 96374; 96375; G0008; J0690; J1100; J1720; J1885; J2001; J2270; J2405; J2704; J3010; J3370; J3475; J7050; J7620; P9016; S0028

== ENCOUNTER 2019-08-15 12:12 | Emergency (ER) | payer OTHER ==
--- NOTE | 2019-08-15 13:34 | ULT ---
EXAM: Left lower extremity venous ultrasound HISTORY: Left lower extremity pain and edema COMPARISON: None TECHNIQUE: Multiplanar grayscale and color Doppler images were obtained in a left lower extremity denis ous ultrasound. Spectral analysis of the Doppler waveforms were performed. FINDINGS: The common femoral vein, profunda femoral vein, superficial femoral vein, and popliteal vei n are normal in appearance without visible thrombus. These vessels demonstrate normal compression, flow, and augmentation. The posterior tibial vein and greater saphenous vein are patent without evidence of thrombus. IMPRESSION: No evidence of DVT.
--- NOTE | 2019-08-15 13:38 | RAD ---
XR Lumbar Spine 2 Or 3 View: 08/15/2019 1:00 PM Lumbar spine injury COMPARISON: Acute abdominal series dated January 25, 2013 FINDINGS: Fracture: There is a new superior endplate compression abnormality of L4 of undetermined chronicity. Alignment: Spinal alignment appears within normal limits. Degenerative Change: There is mild multilevel disc degenerative and facet osteoarthritic change Bone Mineralization:There is diffuse osteopenia Soft tissues: Prevertebral soft tissues demonstrates calcifications overlying the upper midline abdom en suspicious for changes of chronic pancreatitis IMPRESSION: New superior endplate compression abnormality of L4 of undetermined chronicity. Bone scan may be helpful to evaluate acuity. Mild lumbar spondylosis. Diffuse osteopenia. Soft tissue calcifications involving the retroperitoneum of the upper abdomen suspicious for changes of chronic p ancreatitis.
[2019-08-15] MEDS ORDERED: Ibuprofen 200 MG TAB ONE (15:57)
[2019-08-15] MEDS ORDERED: Acetaminophen 325 MG TAB ONE (15:57)
== END 2019-08-15 16:20 | disposition home or self-care (01) ==
LOC: ERS 12:12
DX: M79.89 Other specified soft tissue disorders (principal); J44.9 Chronic obstructive pulmonary disease, unspecified; F31.9 Bipolar disorder, unspecified; Z79.899 Other long term (current) drug therapy
CPT/HCPCS: 72100

== ENCOUNTER 2019-12-11 09:39 | Outpatient (CLI) | payer OTHER ==
--- NOTE | 2019-12-11 11:34 | BD ---
BONE DENSITOMETRY USING DEXA: Date: 12/11/2019 HISTORY: Postmenopausal screening for osteoporosis. FINDINGS: Lumbar Spine: BMD (g/cm2) L1 0.636 T-Score: -3.2 Z-Score: -1.9 L2 0.687 T-Score: -3.1 Z-Score: -1.7 L3 0.649 T-Score: -4.0 Z-Score: -2.4 L4 0.857 T-Score: -1.9 Z-Score: -0.3 L1-L4 0.711 T-Score: -3.1 Z-Score: -1.6 Femoral Neck: 0.451 T-Score: -3.6 Z-Score: -2.3 Total Femur: 0.556 T-Score: -3.2 Z-Score: -2.1 IMPRESSION: Osteoporosis. POS: [facility]
== END 2019-12-11 09:40 | disposition home or self-care (01) ==
LOC: BICMAMMO 09:39
PROVIDERS: ATTEND Internal Medicine
DX: M80.00XD Age-related osteoporosis with current pathological fracture, unspecified site, subsequent encounter for fracture with routine healing (principal)
CPT/HCPCS: 77080

== ENCOUNTER 2020-10-12 19:02 | Inpatient (IN) | payer OTHER ==
[~2020-10-12 19:02] MED LIST: Iopamidol-370 76% 500 ML 1 ML ONE
[2020-10-12 20:23] LABS: #Basophils 0.1 thou/uL (0.0-0.2); #Lymphocytes 3.2 thou/uL (1.20-3.40); #Monocytes 0.4 thou/uL (0.11-0.59); #Neutrophils 3.8 thou/uL (1.40-6.50); %Basophils 0.9 % (0.0-1.0); %Eosinophils 0.5 % (0.0-10.0); %Lymphocytes 42.1 % (21.0-51.0); %Monocytes 5.6 % (0.0-10.0); %Neutrophils 50.9 % (42.0-75.0); Hemoglobin 9.4 g/dL (12.0-16.0); Mean Corpuscular HGB CONC 31.4 g/dL (32.0-36.0); Mean Corpuscular Hemoglobin 34.9 pg (27.0-31.0); Mean Platelet Volume 7.2 fL (7.4-10.4); Platelet Count 201 thou/uL (130-400); RBC Distribution Width 12.7 % (11.5-14.5); Red Blood Cell (RBC) Count 2.69 mill/uL (4.20-5.40); White Blood Cell (WBC) Count 7.5 thou/uL (4.8-10.8)
[2020-10-12 20:56] LABS: ALT (SGPT) 21 U/L (8-55); AST (SGOT) 31 U/L (5-34); Albumin 1.6 g/dL (3.4-4.8); Alkaline Phosphatase 117 U/L (40-110); Anion Gap 12 mmol/L (10-20); BUN (Urea Nitrogen) 13 mg/dL (9.8-20.1); Bilirubin, Total 1.4 mg/dL (0.2-1.2); CK (CPK) 27 U/L (29-168); Calc. Creatinine Clearance 0 mL/min (70-130); Carbon Dioxide 24 mmol/L (23-31); Chloride 102 mmol/L (98-107); Globulin 3.4 g/dL (2.4-3.5); Glucose 97 mg/dL (80-115); Lipase Less than 4 U/L (8-78); Potassium 3.5 mmol/L (3.5-5.1); Sodium 134 mmol/L (136-145)
[2020-10-12 22:24] LABS: Bacteria/HPF None Seen HPF (None Seen); Bilirubin Negative (Negative); Blood, Urine Negative (Negative); Clarity Turbid (Clear); Glucose, Urine (Dipstick) Normal (Negative); Ketone, Urine Negative (Negative); Leukocyte Negative Leu/uL (Negative); Mucous/LPF 4+ LPF (<2+); Nitrite Negative (Negative); Protein, Urine (Dipstick) 100 mg/dL (Neg-Trace); RBC/HPF 0-3 HPF (0-3); Specific Gravity, Urine 1.038 (1.002-1.036); Squamous Epithelial 0-3 HPF (0-3); pH, Urine 5.5 (5.0-9.0)
[2020-10-12 23:52] LABS: Acetaminophen Less than 6.0 mcg/mL (10.0-30.0); Alcohol Less than 10 mg/dL (Less than 10); Salicylate Less than 8.0 mg/dL (15.0-30.0)
[2020-10-12 23:59] LABS: Medtox Reader # READER 4
[2020-10-13] LABS: Amphetamine Not Detected (NotDetected); Barbiturates Screen Not Detected (NotDetected); Benzodiazepine Screen Not Detected (NotDetected); Cocaine Metabolite Screen Not Detected (NotDetected); Medtox Control Line Valid? VALID (VALID); Methadone Not Detected (NotDetected); Methamphetamine Detected (NotDetected); Opiate Screen Not Detected (NotDetected); Oxycodone Screen Not Detected (NotDetected); Phencyclidine (PCP) Not Detected (NotDetected); THC/Cannabinoid Screen Not Detected (NotDetected); Tricyclic Screen Not Detected (NotDetected)
[2020-10-13] MEDS ORDERED: Acetaminophen 325 MG TAB PO PRN (01:39)
[2020-10-13] MEDS ORDERED: Ondansetron PF 4 MG/2 ML Vial IVP PRN (01:39)
[2020-10-13] MEDS ORDERED: Albumin 25% 25 GM/100 ML BOT IVPB SCH (01:45)
[2020-10-13 02:08] VITALS: BMI 19.8
[2020-10-13 05:02] LABS: #Basophils 0.1 thou/uL (0.0-0.2); #Eosinphils 0.1 thou/uL (0.0-0.7); #Lymphocytes 3.4 thou/uL (1.20-3.40); #Monocytes 0.4 thou/uL (0.11-0.59); #Neutrophils 3.9 thou/uL (1.40-6.50); %Basophils 1.1 % (0.0-1.0); %Eosinophils 0.6 % (0.0-10.0); %Lymphocytes 43.3 % (21.0-51.0); %Monocytes 4.7 % (0.0-10.0); %Neutrophils 50.3 % (42.0-75.0); Hemoglobin 7.9 g/dL (12.0-16.0); Mean Corpuscular HGB CONC 30.4 g/dL (32.0-36.0); Mean Corpuscular Hemoglobin 33.9 pg (27.0-31.0); Mean Platelet Volume 7.2 fL (7.4-10.4); Platelet Count 191 thou/uL (130-400); RBC Distribution Width 12.5 % (11.5-14.5); Red Blood Cell (RBC) Count 2.33 mill/uL (4.20-5.40); White Blood Cell (WBC) Count 7.8 thou/uL (4.8-10.8)
[2020-10-13] MEDS: Furosemide 20 MG/2 ML VIAL SLOW IVP SCH ×2 (05:25→14:57)
[2020-10-13 05:31] LABS: Anion Gap 11 mmol/L (10-20); BUN (Urea Nitrogen) 12 mg/dL (9.8-20.1); Calc. Creatinine Clearance 78 mL/min (70-130); Calcium 6.9 mg/dL (7.8-10.44); Carbon Dioxide 24 mmol/L (23-31); Chloride 102 mmol/L (98-107); Glucose 85 mg/dL (80-115); Potassium 3.3 mmol/L (3.5-5.1); Sodium 134 mmol/L (136-145)
[2020-10-13] MEDS: Thiamine 100 MG TAB PO SCH (09:16)
[2020-10-13] MEDS: Folic Acid 1 MG TAB PO SCH (09:16)
[2020-10-13 09:44] LABS: INR-International Normal Ratio 2.1; PTT 47.3 sec (22.9-36.1); Prothrombin Time 24.3 sec (12.0-14.7)
[2020-10-13] MEDS ORDERED: Spironolactone 100 MG TAB PO SCH (10:15)
[2020-10-13] MEDS ORDERED: FLU VACC QS2020-21(6MOS UP)/PF 60 MCG/0.5 ML SYRINGE IM ONE (21:00)
[2020-10-13 23:43] LABS: SARS-CoV-2 PCR by NAA Not Detected (NotDetected)
[2020-10-14] MEDS: Furosemide 20 MG/2 ML VIAL SLOW IVP SCH ×2 (06:16→16:35)
[2020-10-14 06:26] LABS: #Basophils 0.1 thou/uL (0.0-0.2); #Eosinphils 0.1 thou/uL (0.0-0.7); #Lymphocytes 3.1 thou/uL (1.20-3.40); #Monocytes 0.5 thou/uL (0.11-0.59); #Neutrophils 3.5 thou/uL (1.40-6.50); %Basophils 0.9 % (0.0-1.0); %Eosinophils 0.7 % (0.0-10.0); %Lymphocytes 43.3 % (21.0-51.0); %Monocytes 6.3 % (0.0-10.0); %Neutrophils 48.8 % (42.0-75.0); Hemoglobin 8.1 g/dL (12.0-16.0); Mean Corpuscular HGB CONC 32.6 g/dL (32.0-36.0); Mean Corpuscular Hemoglobin 36.1 pg (27.0-31.0); Mean Platelet Volume 7.1 fL (7.4-10.4); Platelet Count 193 thou/uL (130-400); RBC Distribution Width 12.6 % (11.5-14.5); Red Blood Cell (RBC) Count 2.24 mill/uL (4.20-5.40); White Blood Cell (WBC) Count 7.3 thou/uL (4.8-10.8)
[2020-10-14 06:44] LABS: Anion Gap 9 mmol/L (10-20); BUN (Urea Nitrogen) 11 mg/dL (9.8-20.1); Calc. Creatinine Clearance 74 mL/min (70-130); Calcium 7.1 mg/dL (7.8-10.44); Carbon Dioxide 25 mmol/L (23-31); Chloride 103 mmol/L (98-107); Glucose 121 mg/dL (80-115); Potassium 3.2 mmol/L (3.5-5.1); Sodium 134 mmol/L (136-145)
[2020-10-14] MEDS ORDERED: Sodium Bicarbonate 2.5 MEQ/5 ML VIAL ONE (08:05)
[2020-10-14] MEDS ORDERED: Lidocaine 1% PF 5 ML VIAL ONE (08:06)
[2020-10-14] MEDS: Folic Acid 1 MG TAB PO SCH (09:29)
[2020-10-14] MEDS: Thiamine 100 MG TAB PO SCH (09:29)
[2020-10-14] MEDS: Enoxaparin Sodium 40 MG/0.4 ML SYRINGE SC SCH (09:29)
[2020-10-14] MEDS: Spironolactone 100 MG TAB PO SCH (09:29)
[2020-10-14 10:12] LABS: RBC Count-Automated (BF) 11 /cu.mm; WBC/Nucleated-Auto (BF) 21 uL
[2020-10-14 11:30] LABS: BF Color Yellow; Body Fluid Source Ascites Body Fluid; Clarity Hazy (Clear); Tube # EDTA
[2020-10-14 11:56] LABS: BF Segmented Neutrophils 21 %; Cell Count Non Hematic 60 %; Lymphocytes 19 %
[2020-10-14] MEDS ORDERED: Albuterol Sulfate 2.5 mg/3 ml Neb NEB PRN (13:09)
[2020-10-14] MEDS ORDERED: Potassium Chloride 20 MEQ TAB PO SCH (13:15)
[2020-10-14] MEDS ORDERED: Albumin 25% 25 GM/100 ML BOT IVPB SCH (15:30)
[2020-10-14] MEDS: Gabapentin 100 MG CAP PO SCH (21:10)
[2020-10-15 05:39] LABS: #Basophils 0.1 thou/uL (0.0-0.2); #Lymphocytes 3.5 thou/uL (1.20-3.40); #Monocytes 0.4 thou/uL (0.11-0.59); #Neutrophils 5.1 thou/uL (1.40-6.50); %Basophils 0.9 % (0.0-1.0); %Eosinophils 0.4 % (0.0-10.0); %Lymphocytes 38.5 % (21.0-51.0); %Monocytes 4.2 % (0.0-10.0); Mean Corpuscular HGB CONC 31.3 g/dL (32.0-36.0); Mean Corpuscular Hemoglobin 34.6 pg (27.0-31.0); Mean Platelet Volume 7.1 fL (7.4-10.4); Platelet Count 188 thou/uL (130-400); RBC Distribution Width 12.6 % (11.5-14.5); White Blood Cell (WBC) Count 9.1 thou/uL (4.8-10.8)
[2020-10-15 05:56] LABS: Anion Gap 8 mmol/L (10-20); BUN (Urea Nitrogen) 9 mg/dL (9.8-20.1); Calc. Creatinine Clearance 85 mL/min (70-130); Calcium 7.2 mg/dL (7.8-10.44); Carbon Dioxide 26 mmol/L (23-31); Chloride 104 mmol/L (98-107); Glucose 126 mg/dL (80-115); Potassium 3.5 mmol/L (3.5-5.1); Sodium 134 mmol/L (136-145)
[2020-10-15] MEDS: Furosemide 20 MG/2 ML VIAL SLOW IVP SCH ×2 (06:05→14:15)
[2020-10-15] MEDS: Midodrine HCl 5 MG TAB PO SCH ×3 (06:12→21:23)
[2020-10-15] MEDS: Spironolactone 100 MG TAB PO SCH (08:57)
[2020-10-15] MEDS: Multivit, Therapeutic 1 TAB PO SCH (08:57)
[2020-10-15] MEDS: Gabapentin 100 MG CAP PO SCH ×2 (08:57→21:20)
[2020-10-15] MEDS: Thiamine 100 MG TAB PO SCH (08:58)
[2020-10-15] MEDS: Folic Acid 1 MG TAB PO SCH (08:58)
[2020-10-15] MEDS: Enoxaparin Sodium 40 MG/0.4 ML SYRINGE SC SCH (08:58)
[2020-10-15] MEDS: Furosemide 20 MG TAB PO SCH (12:31)
[2020-10-16] MEDS: Furosemide 20 MG/2 ML VIAL SLOW IVP SCH (05:56)
[2020-10-16] MEDS: Midodrine HCl 5 MG TAB PO SCH ×3 (06:07→21:08)
[2020-10-16] MEDS: Thiamine 100 MG TAB PO SCH (08:59)
[2020-10-16] MEDS: Multivit, Therapeutic 1 TAB PO SCH (08:59)
[2020-10-16] MEDS: Furosemide 20 MG TAB PO SCH (08:59)
[2020-10-16] MEDS: Gabapentin 100 MG CAP PO SCH ×2 (08:59→21:07)
[2020-10-16] MEDS: Folic Acid 1 MG TAB PO SCH (08:59)
[2020-10-16] MEDS: Spironolactone 100 MG TAB PO SCH (08:59)
[2020-10-16] MEDS: Sodium Chloride 0.9% 1,000 ML IV SCH ×2 (09:00→23:58)
[2020-10-16] MEDS: Enoxaparin Sodium 40 MG/0.4 ML SYRINGE SC SCH (09:00)
[2020-10-17] MEDS: Midodrine HCl 5 MG TAB PO SCH ×3 (06:04→20:27)
[2020-10-17] MEDS ORDERED: Benzonatate 100 MG CAP PO SCH (09:15)
[2020-10-17] MEDS: Gabapentin 100 MG CAP PO SCH ×2 (09:25→20:26)
[2020-10-17] MEDS: Multivit, Therapeutic 1 TAB PO SCH (09:26)
[2020-10-17] MEDS: Enoxaparin Sodium 40 MG/0.4 ML SYRINGE SC SCH (09:26)
[2020-10-17] MEDS: Spironolactone 100 MG TAB PO SCH (09:26)
[2020-10-17] MEDS: Thiamine 100 MG TAB PO SCH (09:26)
[2020-10-17] MEDS: Folic Acid 1 MG TAB PO SCH (09:26)
[2020-10-17] MEDS: Furosemide 20 MG TAB PO SCH (09:26)
[2020-10-17] MEDS: Sodium Chloride 0.9% 1,000 ML IV SCH ×2 (15:21→23:41)
[2020-10-17] MEDS ORDERED: Lorazepam 2 MG/ML VIAL SLOW IVP PRN (20:52)
[2020-10-17] MEDS ORDERED: Sodium Chloride 0.9% 250 ML IV SCH (21:00)
[2020-10-17] MEDS: Benzonatate 100 MG CAP PO PRN (21:20)
[2020-10-17] MEDS ORDERED: Thiamine HCl 200 MG/2 ML VIAL IM SCH (22:00)
[2020-10-18] MEDS: Midodrine HCl 5 MG TAB PO SCH ×3 (04:42→20:46)
[2020-10-18] MEDS: Multivit, Therapeutic 1 TAB PO SCH (08:53)
[2020-10-18] MEDS: Gabapentin 100 MG CAP PO SCH ×2 (08:53→20:45)
[2020-10-18] MEDS: Magnesium Oxide 400 MG TAB PO SCH (08:53)
[2020-10-18] MEDS: Thiamine 100 MG TAB PO SCH (08:53)
[2020-10-18] MEDS: Folic Acid 1 MG TAB PO SCH (08:54)
[2020-10-18] MEDS: Enoxaparin Sodium 40 MG/0.4 ML SYRINGE SC SCH (08:54)
[2020-10-18] MEDS: Furosemide 20 MG TAB PO SCH (08:55)
[2020-10-18] MEDS: Spironolactone 100 MG TAB PO SCH (08:55)
[2020-10-18] MEDS ORDERED: Albumin 25% 25 GM/100 ML BOT IVPB SCH ×3 (10:24→22:14)
[2020-10-18] MEDS ORDERED: Furosemide 20 MG/2 ML VIAL SLOW IVP SCH ×3 (10:30→22:00)
[2020-10-18 10:37] LABS: ALT (SGPT) 19 U/L (8-55); AST (SGOT) 56 U/L (5-34); Albumin 1.8 g/dL (3.4-4.8); Alkaline Phosphatase 97 U/L (40-110); Anion Gap 9 mmol/L (10-20); BUN (Urea Nitrogen) 10 mg/dL (9.8-20.1); Bilirubin, Total 2.4 mg/dL (0.2-1.2); Calc. Creatinine Clearance 75 mL/min (70-130); Calcium 6.8 mg/dL (7.8-10.44); Carbon Dioxide 22 mmol/L (23-31); Chloride 105 mmol/L (98-107); Globulin 2.8 g/dL (2.4-3.5); Glucose 110 mg/dL (80-115); Potassium 3.4 mmol/L (3.5-5.1); Protein, Total 4.6 g/dL (5.8-8.1); Sodium 133 mmol/L (136-145)
[2020-10-18] MEDS: Benzonatate 100 MG CAP PO PRN (12:35)
[2020-10-18 12:49] LABS: Hemoglobin 8.5 g/dL (12.0-16.0); Mean Corpuscular HGB CONC 31.3 g/dL (32.0-36.0); Mean Corpuscular Hemoglobin 34.9 pg (27.0-31.0); Mean Platelet Volume 7.5 fL (7.4-10.4); Platelet Count 172 thou/uL (130-400); RBC Distribution Width 12.9 % (11.5-14.5); Red Blood Cell (RBC) Count 2.42 mill/uL (4.20-5.40); White Blood Cell (WBC) Count 18.5 thou/uL (4.8-10.8)
[2020-10-18 13:07] LABS: Band 34 % (5-11); Hypochromia SLIGHT = 6-15 cells (100X) (0-5/hpf); Lymphocytes 10 % (21-51); MDiff Complete? YES; Macrocytosis SLIGHT = 6-15 cells (100X) (0-5/hpf); Monocytes 1 % (0-10); Neutrophil 55 % (42-75); Platelet Morphology Comment Appears Adequate; Polychromasia SLIGHT = 2-3 cells (100X) (0-2/hpf); Target Cells SLIGHT = 2-5 cells (100X) (0-1/hpf); Tear Drops SLIGHT = 2-5 cells (100X) (0-1/hpf)
[2020-10-18] MEDS ORDERED: Nicotine 21 MG PATCH TOP SCH (13:15)
[2020-10-18] MEDS: Sodium Chloride 0.9% 1,000 ML IV SCH (13:35)
[2020-10-18 18:20] LABS: Bacteria/HPF None Seen HPF (None Seen); Bilirubin Negative (Negative); Blood, Urine Negative (Negative); Clarity Clear (Clear); Glucose, Urine (Dipstick) Normal (Negative); Ketone, Urine Negative (Negative); Leukocyte Negative Leu/uL (Negative); Nitrite Negative (Negative); Protein, Urine (Dipstick) Negative (Neg-Trace); RBC/HPF 0-3 HPF (0-3); Specific Gravity, Urine 1.009 (1.002-1.036); Squamous Epithelial None Seen HPF (0-3); Urobilinogen Normal mg/dL (Less than 2); WBC/HPF 0-3 HPF (0-3); pH, Urine 5.5 (5.0-9.0)
[2020-10-18 18:22] LABS: Urine Culture Reflex No No
[2020-10-18] MEDS: Vancomycin HCl 750 MG in Sodium Chloride 0.9% 250 ML 250 ML IVPB SCH (18:22)
[2020-10-18 18:23] LABS: Troponin I 0.029 ng/mL (< 0.028)
[2020-10-18] MEDS: Piperacillin/Tazobactam 4.5 GM in Sodium Chloride 0.9% 100 ML IVPB SCH (20:46)
[2020-10-18 21:02] LABS: Lactic Acid 2.6 mmol/L (0.5-2.2)
[2020-10-18 22:31] LABS: Actual Bicarbonate (HCO3a) 20.6 mEq/L (22-28); Analyzer IN Cardio OR; Base Excess (BEa) -2.3 mEq/L (-2.0 to +3.0); CO2 Tension 28.1 mmHg (35.0-45.0); Calcium, Ionized (arterial) 1.03 mmol/L (1.12-1.30); Carboxyhemoglobin (COHb) 1.6 gm% (0.0-3.0); Hemoglobin (Hb) 7.8 g/dL (12.0-16.0); Potassium - ABG Lab 2.95 mmol/L (3.70-5.30); pH, Arterial 7.48 (7.35-7.45)
[2020-10-18 22:33] LABS: O2 Tension (PaO2), arterial 51.5 mmHg (> 80.0)
[2020-10-18 22:34] LABS: ALV-art Gradient 198.575 mmHg (0-20); Puncture Site RRA
[2020-10-18 23:21] LABS: Troponin I 0.021 ng/mL (< 0.028)
[2020-10-19] MEDS: Midodrine HCl 5 MG TAB PO SCH ×3 (04:54→21:26)
[2020-10-19] MEDS: Piperacillin/Tazobactam 4.5 GM in Sodium Chloride 0.9% 100 ML IVPB SCH ×3 (04:54→21:23)
[2020-10-19] MEDS: Sodium Chloride 0.9% 1,000 ML IV SCH (04:58)
[2020-10-19] MEDS ORDERED: Furosemide 40 MG/4 ML VIAL ONE ×2 (05:17→17:45)
[2020-10-19 05:37] LABS: Bacteria/HPF 4+ HPF (None Seen); Bilirubin Negative (Negative); Blood, Urine 2+ (Negative); Clarity Turbid (Clear); Glucose, Urine (Dipstick) Normal (Negative); Ketone, Urine Negative (Negative); Leukocyte 250 Leu/uL (Negative); Nitrite Negative (Negative); Protein, Urine (Dipstick) Negative (Neg-Trace); RBC/HPF 0-3 HPF (0-3); Specific Gravity, Urine 1.009 (1.002-1.036); Squamous Epithelial None Seen HPF (0-3); Urine Culture Reflex Yes Yes; Urobilinogen Normal mg/dL (Less than 2)
[2020-10-19] MEDS ORDERED: Potassium Chloride 40 MEQ in Premix Bag 1 BAG IVPB SCH (05:45)
[2020-10-19] MEDS: Potassium Chloride 20 MEQ in Premix Bag 1 BAG IVPB SCH ×2 (06:15→08:23)
[2020-10-19] MEDS: Vancomycin HCl 750 MG in Sodium Chloride 0.9% 250 ML 250 ML IVPB SCH ×2 (06:36→17:51)
[2020-10-19 06:59] LABS: Anion Gap 15 mmol/L (10-20); BUN (Urea Nitrogen) 8 mg/dL (9.8-20.1); Calc. Creatinine Clearance 74 mL/min (70-130); Calcium 7.5 mg/dL (7.8-10.44); Carbon Dioxide 21 mmol/L (23-31); Chloride 106 mmol/L (98-107); Glucose 68 mg/dL (80-115); Magnesium 1.9 mg/dL (1.6-2.6); Sodium 139 mmol/L (136-145)
[2020-10-19 07:00] LABS: ALT (SGPT) 21 U/L (8-55); AST (SGOT) 61 U/L (5-34); Albumin 2.8 g/dL (3.4-4.8); Alkaline Phosphatase 82 U/L (40-110); Anion Gap 18 mmol/L (10-20); BUN (Urea Nitrogen) 8 mg/dL (9.8-20.1); Bilirubin, Total 3.5 mg/dL (0.2-1.2); Calc. Creatinine Clearance 67 mL/min (70-130); Calcium 7.2 mg/dL (7.8-10.44); Carbon Dioxide 20 mmol/L (23-31); Chloride 106 mmol/L (98-107); Globulin 2.1 g/dL (2.4-3.5); Glucose 67 mg/dL (80-115); Potassium 3.1 mmol/L (3.5-5.1); Protein, Total 4.9 g/dL (5.8-8.1); Sodium 141 mmol/L (136-145)
[2020-10-19 07:04] LABS: Troponin I 0.043 ng/mL (< 0.028)
[2020-10-19 08:07] LABS: Band 32 % (5-11); Hemoglobin 8.2 g/dL (12.0-16.0); Lymphocytes 13 % (21-51); MDiff Complete? YES; Macrocytosis SLIGHT = 6-15 cells (100X) (0-5/hpf); Mean Corpuscular HGB CONC 31.5 g/dL (32.0-36.0); Mean Platelet Volume 7.5 fL (7.4-10.4); Metamyelocyte 1 % (0-0); Monocytes 2 % (0-10); Neutrophil 52 % (42-75); Platelet Count 173 thou/uL (130-400); Polychromasia SLIGHT = 2-3 cells (100X) (0-2/hpf); Red Blood Cell (RBC) Count 2.35 mill/uL (4.20-5.40); Target Cells SLIGHT = 2-5 cells (100X) (0-1/hpf); White Blood Cell (WBC) Count 16.3 thou/uL (4.8-10.8)
[2020-10-19] MEDS: Folic Acid 1 MG TAB PO SCH (08:24)
[2020-10-19] MEDS: Gabapentin 100 MG CAP PO SCH ×2 (08:24→19:47)
[2020-10-19] MEDS: Spironolactone 100 MG TAB PO SCH (08:24)
[2020-10-19] MEDS: Thiamine 100 MG TAB PO SCH (08:25)
[2020-10-19] MEDS: Multivit, Therapeutic 1 TAB PO SCH (08:25)
[2020-10-19] MEDS: Magnesium Oxide 400 MG TAB PO SCH (08:25)
[2020-10-19] MEDS ORDERED: Nicotine 21 MG PATCH TOP SCH (09:00)
[2020-10-19 09:03] VITALS: BP 99/61
[2020-10-19] MEDS: Enoxaparin Sodium 40 MG/0.4 ML SYRINGE SC SCH (09:03)
[2020-10-19] MEDS ORDERED: Furosemide 100 MG/10 ML VIAL SLOW IVP SCH (18:00)
[2020-10-19 19:14] VITALS: TEMP 97.4
[2020-10-19] MEDS ORDERED: Dextrose 50% Abboject 50 ML SYRINGE ONE (20:03)
[2020-10-19] MEDS ORDERED: Dextrose 10% in Water 1,000 ML IV SCH (20:30)
[2020-10-19] MEDS ORDERED: Rifaximin 550 MG TAB PO SCH (21:00)
[2020-10-19] MEDS ORDERED: Lactulose 10 GM/15 ML Oral Solution PR SCH (21:00)
[2020-10-19] MEDS ORDERED: Norepinephrine 8 MG/0.9% NS 250 ML ONE (21:47)
[2020-10-19] MEDS ORDERED: Norepinephrine 8 MG/0.9% NS 250 ML IVPB SCH (22:15)
[2020-10-19] MEDS ORDERED: Albumin 25% 25 GM/100 ML BOT IVPB SCH (22:15)
== END 2020-10-19 23:37 | disposition expired | DRG 441 ==
LOC: ERS 19:02 → ONC 23:33 → CCU 10-19 05:43
PROVIDERS: ADMIT Internal Medicine; ATTEND Internal Medicine
PROC: 0W9G3ZZ Drainage of Peritoneal Cavity, Percutaneous Approach (ICD-10-PCS; principal; 2020-10-14)
PROC: 3E033XZ Introduction of Vasopressor into Peripheral Vein, Percutaneous Approach (ICD-10-PCS; 2020-10-19)
DX: K72.90 Hepatic failure, unspecified without coma (principal); E43 Unspecified severe protein-calorie malnutrition; J96.00 Acute respiratory failure, unspecified whether with hypoxia or hypercapnia; J90 Pleural effusion, not elsewhere classified; E87.1 Hypo-osmolality and hyponatremia; K86.1 Other chronic pancreatitis; F10.188 Alcohol abuse with other alcohol-induced disorder; Z68.1 Body mass index [BMI] 19.9 or less, adult; Z20.822 Contact with and (suspected) exposure to COVID-19; Z66 Do not resuscitate; K70.31 Alcoholic cirrhosis of liver with ascites; F19.10 Other psychoactive substance abuse, uncomplicated; J44.9 Chronic obstructive pulmonary disease, unspecified; F31.9 Bipolar disorder, unspecified; F17.210 Nicotine dependence, cigarettes, uncomplicated; E86.0 Dehydration; E87.6 Hypokalemia; I95.9 Hypotension, unspecified; E87.70 Fluid overload, unspecified; D63.8 Anemia in other chronic diseases classified elsewhere; R62.7 Adult failure to thrive; K59.09 Other constipation; Z79.51 Long term (current) use of inhaled steroids; Z79.899 Other long term (current) drug therapy
CPT/HCPCS: 36415; 36416; 36600; 49083; 51701; 71045; 74177; 80048; 80053; 80306; 80307; 81001; 81003; 81015; 82140; 82550; 82607; 82746; 82805; 83605; 83690; 83735; 83880; 84484; 85025; 85060; 85610; 85730; 87040; 87045; 87046; 87086; 87427; 87449; 87635; 89051; 93005; 93010; 94640; 94660; 94760; J1650; J1940; J2543; J3370; J3411; J3475; J3480; J3490; J7050; J7620; P9047; Q9967; U0003; U0005